=== PATIENT | male | born 1975 | race Caucasian/White ===

== ENCOUNTER 2020-03-21 08:46 | Emergency (ER) | payer OTHER ==
[2020-03-21 08:53] VITALS: BP_SYST 135
--- NOTE | 2020-03-21 08:55 | NUR ---
pt placed to room 5 and placed in [facility]. Pt is alert and oriented. here for follow up after an injury on Friday.
--- NOTE | 2020-03-21 09:48 | NUR ---
ER Dr. Li at bedside examining patient.
[2020-03-21] MEDS ORDERED: KETOROLAC TROMETHAMINE 60 MG/2 ML VIAL IM ONE (10:00)
[2020-03-21 10:22] VITALS: BP_SYST 135
--- NOTE | 2020-03-21 10:22 | NUR ---
Patient given written and verbal discharge instructions and verbalizes understanding. ER MD discussed with patient the results and treatment provided. Patient in stable condition. ID arm band removed.Patient educated on pain management and to follow up with PMD. Pain Scale 4/10. Opportunity for questions provided and answered. Medication side effect fact sheet provided.
== END 2020-03-21 10:22 | disposition home or self-care (01) ==
LOC: SED 08:46
DX: M25.562 Pain in left knee (principal); M54.5 Low back pain; I10 Essential (primary) hypertension; E11.9 Type 2 diabetes mellitus without complications; Z85.850 Personal history of malignant neoplasm of thyroid
CPT/HCPCS: 96372; 99283; J1885